=== PATIENT | male | born 1990 | race Hispanic/Latino ===

== ENCOUNTER 2017-11-13 19:14 | Emergency (ER) | payer SELFPAY ==
[2017-11-13] MEDS ORDERED: KETOROLAC 30 MG/ML INJ ONE (20:21)
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
== END 2017-11-13 21:19 | disposition home or self-care (01) ==
LOC: ER 19:14
DX: S20.222A Contusion of left back wall of thorax, initial encounter (principal); S20.419A Abrasion of unspecified back wall of thorax, initial encounter; V29.9XXA Motorcycle rider (driver) (passenger) injured in unspecified traffic accident, initial encounter
CPT/HCPCS: 71045; 96372; 99284